=== PATIENT | female | born 1995 | race Caucasian/White ===

== ENCOUNTER 2017-03-23 22:03 | Emergency (ER) | payer OTHER ==
[~2017-03-23] VITALS: Ht 160 cm; Wt 106.6 kg
[~2017-03-23 22:03] MED LIST: ANAPROX DS550 MG PO; CARAFATE1 GM PO; CITALOPRAM HBR20 MG PO; CLONIDINE PO; COLACE100 MG PO; CRUTCH1 EACH; CYCLOBENZAPRINE10 MG PO; ETHOSUXIMIDE250 MG PO; HYDROXYZINE PAM50 MG PO; IBUPROFEN800 MG PO; KEFLEX500 MG PO; KEPPRA500 MG PO; LAMICTAL25 MG PO; LAMOTRIGINE100 MG PO; LUTERA1 EACH PO; MAALOX525 MG/15 PO; MELATONIN3 MG PO; NAPROXEN375 MG PO; NAPROXEN500 MG PO; NORCO 5-325 TA1 EACH PO; PERCOCET 7.5-31 EACH PO; PRILOSEC20 MG PO; TRAMADOL HCL50 MG PO; TRAZODONE HCL50 MG PO; ULTRAM50 MG PO; VITAMIN D250000 UNIT PO; VITAMIN D5000 UNIT PO; ZARONTIN250 MG PO; ZOFRAN ODT4 MG SL
[2017-03-23] MEDS ORDERED: PREVIFEM1 EACH PO (22:20)
== END 2017-03-24 00:08 | disposition home or self-care (01) ==
LOC: ED 22:03
DX: N92.0 Excessive and frequent menstruation with regular cycle (principal); F41.9 Anxiety disorder, unspecified; F32.9 Major depressive disorder, single episode, unspecified; Z90.49 Acquired absence of other specified parts of digestive tract; Z88.5 Allergy status to narcotic agent; Z88.8 Allergy status to other drugs, medicaments and biological substances; Z79.899 Other long term (current) drug therapy
CPT/HCPCS: 84703; 85025; 99283

== ENCOUNTER 2017-05-03 17:18 | Emergency (ER) | payer OTHER ==
[~2017-05-03] VITALS: Ht 160 cm; Wt 106.6 kg
[~2017-05-03 17:18] MED LIST changes: +PREVIFEM1 EACH PO
[2017-05-03] MEDS ORDERED: BACLOFEN10 MG PO (18:24)
[2017-05-03] MEDS ORDERED: KETOROLAC TROME10 MG PO (18:24)
== END 2017-05-03 18:52 | disposition home or self-care (01) ==
LOC: ED 17:18
DX: M99.03 Segmental and somatic dysfunction of lumbar region (principal); M99.05 Segmental and somatic dysfunction of pelvic region; G40.909 Epilepsy, unspecified, not intractable, without status epilepticus; F41.9 Anxiety disorder, unspecified; F32.9 Major depressive disorder, single episode, unspecified; Z90.89 Acquired absence of other organs; Z90.49 Acquired absence of other specified parts of digestive tract; Z88.5 Allergy status to narcotic agent; Z88.8 Allergy status to other drugs, medicaments and biological substances
CPT/HCPCS: 99282

== ENCOUNTER 2017-09-03 15:35 | Emergency (ER) | payer OTHER ==
[~2017-09-03] VITALS: Ht 160 cm; Wt 106.6 kg
[~2017-09-03 15:35] MED LIST changes: +BACLOFEN10 MG PO; +KETOROLAC TROME10 MG PO
[2017-09-03] MEDS ORDERED: BUPROPION HCL100 MG PO (15:56)
[2017-09-03] MEDS ORDERED: BUSPIRONE HCL10 MG PO (15:57)
--- OUTSIDE RECORDS SUMMARY | 2017-09-03 15:59 | XMS | Clinical Summary ---
Demographics + + + | Address | [address] | | | [place] [address] | + + + | Home Phone | | + + + | Preferred Language | Unknown | + + + | Marital Status | Single | + + + | Holiness Affiliation | CAT | + + + | Race | White | + + + | Ethnic Group | Not or | + + + Author + + + | Author | [facility] | + + + | Organization | [facility] | + + + | Address | Unknown | + + + | Phone | Unavailable | + + + Care Team Providers + +------+ + | Care Faucets Assembler Name | Role | Phone | + +------+ + PP | Unavailable | + +------+ + Source Comments [facility] is fully live on both EpicCare Ambulatory and EpicCare InPatient.[facility] Allergies + + + + + + | Active Allergy | Reactions | Severity | Noted | Comments | | | | | Date | | + + + + + + | Acetaminophen-Codein | Rash | | 01/14/20 | Tylenol w codeine | | e | | | 12 | was given at the | | | | | | same time as | | | | | | morphine and pt | | | | | | reacted with an all | | | | | | over body rash. | | | | | | Unclear which agent | | | | | | responsible for | | | | | | rash/allergy. | + + + + + + Current Medications + + +-------+---------+------+------+-------+ | Prescription | Sig. | Disp. | Refills | Star | End | Statu | | | | | | t | Date | s | | | | | | Date | | | + + +-------+---------+------+------+-------+ | Melatonin 1 mg | Take 1 mg by mouth | | | | | Activ | | Oral Tablet | once daily at | | | | | e | | | bedtime. | | | | | | + + +-------+---------+------+------+-------+ | Psyllium Husk | Take 0.52 g by mouth | | | | | Activ | | (METAMUCIL) 0.52 g | as needed. | | | | | e | | Oral Capsule | | | | | | | + + +-------+---------+------+------+-------+ Active Problems + + + | Problem | Noted Date | + + + | Generalized nonconvulsive epilepsy (HCC) | | + + + + + | Overview: <PROVIDER>YEISON HAMILTON | | <MODIFIER>345.00 | | ICD10 | + + Social History + +-------+ +--------+------+ | Tobacco Use | Types | Packs/Day | Years | Date | | | | | Used | | + +-------+ +--------+------+ | Never Assessed | | | | | + +-------+ +--------+------+ + + + | Sex Assigned at | Date Recorded | | | | + + + | Not on file | | + + + Last Filed Vital Signs + + + + | Vital Sign | Reading | Time Taken | + + + + | Blood Pressure | 118/57 | 01/14/2012 10:00 AM PDT | + + + + | Pulse | 66 | 01/14/2012 10:00 AM PDT | + + + + | Temperature | - | - | + + + + | Respiratory Rate | - | - | + + + + | Oxygen Saturation | - | - | + + + + | Inhaled Oxygen | - | - | | Concentration | | | + + + + | Weight | 77.9 kg (171 lb 11.8 | 01/14/2012 10:00 AM PDT | | | oz) | | + + + + | Height | 160.8 cm (5' 3.31") | 01/14/2012 10:00 AM PDT | + + + + | Body Mass Index | 30.13 | 01/14/2012 10:00 AM PDT | + + + + Plan of Treatment + + + + + | Health Maintenance | Due Date | Last Done | Comments | + + + + + | INFLUENZA VACCINE | | | | | (FLU SHOT) | 7 | | | + + + + + Results Not on filefrom Last 3 Months
== END 2017-09-03 17:52 | disposition home or self-care (01) ==
LOC: ED 15:35
DX: R41.3 Other amnesia (principal); F41.9 Anxiety disorder, unspecified; F32.9 Major depressive disorder, single episode, unspecified; Z88.5 Allergy status to narcotic agent; Z88.8 Allergy status to other drugs, medicaments and biological substances
CPT/HCPCS: 70450; 99284

== ENCOUNTER 2019-09-22 12:02 | Day surgery (SDC) | payer OTHER ==
[~2019-09-22] VITALS: Ht 160 cm; Wt 106.6 kg
--- NOTE | ~2019-09-22 | OR ---
[facility] [address], [place] [address] Draft DATE OF OPERATION: 09/22/2019 SURGEON: Silva Amaya MD PREOPERATIVE DIAGNOSES: 1. Persistent nausea and epigastric pain. 2. Negative beta-hCG. 3. History of cholecystectomy. POSTOPERATIVE DIAGNOSIS: Normal esophagus, stomach, and duodenum. PROCEDURE: Esophagogastroduodenoscopy with biopsy. ANESTHESIA: Intravenous sedation with fentanyl 100 mcg and Versed 6 mg. INDICATION: A 24-year-old obese white woman is a patient of Dr. Dong and has had complaints of upper abdominal pain in the epigastric area, worse with stress. She also has associated nausea. She has undergone laparoscopic cholecystectomy in 2012 with improvement of her symptoms back then. She has been treated with PPI medication with essentially no benefit. She does note that stress makes her symptoms quite a bit worse. She is admitted at this time to undergo upper endoscopy to better characterize the problem and assess for peptic disease, infectious disease, and other problems related to her upper abdominal pain symptoms. She understands the risks of bleeding, infection, and perforation. She wished to proceed. FINDINGS: Esophagus, stomach, and duodenum were normal. CLOtest biopsies were negative. DESCRIPTION OF PROCEDURE: The patient was brought to the endoscopy suite and given topical Hurricaine spray hypopharyngeal anesthesia and placed in lateral decubitus position. She was given intravenous sedation to the point of slurred speech and nystagmus with full cardiopulmonary monitoring. A bite block was placed. An Olympus video upper endoscope was passed in the hypopharynx. The vocal cords and surrounding soft tissue were normal. Scope was easily passed in the esophagus throughout its length, it was normal. Scope was passed in the stomach, which was insufflated with air. There was a fair amount of PATIENT NAME: LEO DEAL OPERATIVE REPORT DATE OF : [birth year] REPORT #: [id number] PHYSICIAN: SILVA AMAYA MD PCP: THEODORA DONG MD REPORT IS CONFIDENTIAL AND NOT TO BE RELEASED WITHOUT AUTHORIZATION [facility] [address], [place] [address] Draft bilious fluid in the stomach. Once suctioned free, the rugal folds appeared normal as did antral motility. Pylorus was normal. Scope was passed through into the duodenum. The bulbar and second and third portions appeared normal. Biopsies were taken of both areas. The scope was withdrawn and biopsies then taken of the antrum, which appeared normal. Retroflexed view showed a good flap valve. No sign of hiatal hernia. Scope was withdrawn to the distal esophagus, which was completely normal. Biopsies were taken nevertheless. Scope was withdrawn to the mid esophagus. Biopsies taken as well. Scope was removed and the patient was taken to recovery room in good condition. CONCLUDING DIAGNOSIS: Entirely normal upper endoscopy. ASSESSMENT: Appears to have nonulcer dyspepsia. She has been unresponsive to PPI medication. It is unlikely that biopsies will find any pathologic finding not seen endoscopically; however, we will wait for those results. In the meantime, we will treat with Carafate 1 g p.o. q.i.d. on empty stomach. See her back in 4 to 6 weeks and review of her symptoms. Silva Amaya MD JM/MODL /[id number] cc: Theodora Dong MD Copies: THEODORA DONG MD ~ PATIENT NAME: LEO DEAL OPERATIVE REPORT DATE OF : [birth year] REPORT #: [id number] PHYSICIAN: SILVA AMAYA MD PCP: THEODORA DONG MD REPORT IS CONFIDENTIAL AND NOT TO BE RELEASED WITHOUT AUTHORIZATION
[~2019-09-22 12:02] MED LIST changes: +BUPROPION HCL100 MG PO; +BUSPIRONE HCL10 MG PO; +DOXYCYCLINE HY100 MG PO; +FLAGYL500 MG PO; +MIRENA1 EACH; +OMEPRAZOLE20 MG PO; +VITAMIN D21250 MCG PO; +ZOLPIDEM TARTRAT5 MG PO
--- NOTE | 2019-09-22 13:24 | NUR ---
09/22/19 1324 Dixie Rodriguez 1316-PATIENT ARRIVED TO PACU ON 2L NC AWAKE DENIES PAIN OR NAUSEA. RR EVEN. ABDOMEN SOFT. LAYING LEFT LATERAL. IVF INFUSING.
--- NOTE | 2019-09-25 10:52 | PATH ---
[facility] [address] [place], [place] [address] Signed SPECIMEN(S): A DUODENUM SPECIMEN(S): B ANTRUM/PYLORUS SPECIMEN(S): C LOWER ESOPHAGUS SPECIMEN(S): D MIDDLE ESOPHAGUS SPECIMEN SOURCE: A. DUODENUM B. ANTRUM/PYLORUS C. LOWER ESOPHAGUS D. MIDDLE ESOPHAGUS CLINICAL HISTORY: Pre Op: Upper abdominal pain. Hx of cholecystectomy. Post Op: Normal. MICROSCOPIC DESCRIPTION: Histologic sections of all submitted blocks are examined by light microscopy. These findings, together with the gross examination, support the pathologic diagnosis. FINAL PATHOLOGIC DIAGNOSIS: A. Duodenum, biopsy: - Duodenal mucosa with no histopathologic abnormality. - Negative for dysplasia or malignancy. B. Stomach, antrum/pylorus, biopsy: - Antral mucosa with mild chronic, inactive gastritis. - Negative for Helicobacter organisms, see Comment. - Negative for dysplasia or malignancy. C. Esophagus, lower, biopsy: - Squamous mucosa with changes suggestive of mild reflux esophagitis. - Negative for intestinal metaplasia, dysplasia, or malignancy. D. Esophagus, middle, biopsy: - Squamous mucosa with minimal chronic inflammation and focal mucosal capillary dilation. - Negative for intestinal metaplasia, dysplasia, or malignancy. COMMENT: An immunohistochemical stain (with appropriately staining controls) for H. pylori performed on the stomach antral biopsy (B) is negative for Helicobacter organisms. NAL:cml:C2NR GROSS DESCRIPTION: PATIENT NAME: LEO DEAL PATHOLOGY DATE OF : [birth year] REPORT #: [id number] PHYSICIAN: KATHRIN PATHOLOGY PCP: THEODORA DONG MD REPORT IS CONFIDENTIAL AND NOT TO BE RELEASED WITHOUT AUTHORIZATION [facility] [address] [place], [place] [address] Signed Four specimens are received in four containers, labeled "WL." A. The specimen, labeled "WL, duodenum," per requisition, is received in formalin and consists of three goins soft tissue fragment(s) that measure 0.3 cm in greatest dimension. The specimen is entirely submitted in cassette (A1). B. The specimen, labeled "WL, antrum/pylorus," per requisition, is received in formalin and consists of two goins soft tissue fragment(s) that measure 0.4 cm in greatest dimension. The specimen is entirely submitted in cassette (B1). C. The specimen, labeled "WL, lower esophagus," per requisition, is received in formalin and consists of three single goins soft tissue fragment(s) that measure 0.4 cm in greatest dimension. The specimen is entirely submitted in cassette (C1). D. The specimen, labeled "WL, middle esophagus," per requisition, is received in formalin and consists of a single goins soft tissue fragment(s) that measures 0.4 cm in greatest dimension. The specimen is entirely submitted in cassette (D1). AT(under the direct supervision of a pathologist) The Gross Description was prepared using a voice recognition system. The report was reviewed for accuracy; however, sound-alike word errors, addition and/or deletions may occur. If there is any question about this report, please contact Client Services. ADDITIONAL NOTES: Immunohistochemical and/or in situ hybridization studies were performed on this case with the appropriate positive controls that react as expected. This test was developed and its performance characteristics determined by [facility]. It has not been cleared or approved by the U.S. Food and Drug Administration. The FDA has determined that such clearance or approval is not necessary. This test is used for clinical purposes. It should not be regarded as investigational or for research. [facility] is certified under the Clinical Laboratory Improvement Amendments of 1988 (CLIA) as qualified to perform high complexity clinical laboratory testing. PERFORMING LABORATORY: The technical component was performed by [facility], [address] [place] [id number] (Cryptographic Clerk: Margarita Coronel MD; CLIA# [id number]). [facility] [address], PATIENT NAME: LEO DEAL PATHOLOGY DATE OF : [birth year] REPORT #: [id number] PHYSICIAN: KATHRIN PATHOLOGY PCP: THEODORA DONG MD REPORT IS CONFIDENTIAL AND NOT TO BE RELEASED WITHOUT AUTHORIZATION [facility] [address] [place] [id number] Signed [place] [id number] (CLIA# [id number]). Diagnostician: Megan Bolton MD Pathologist Electronically Signed 09/24/2019 Copies: ~ PATIENT NAME: LEO DEAL PATHOLOGY DATE OF : [birth year] REPORT #: [id number] PHYSICIAN: KATHRIN PATHOLOGY PCP: THEODORA DONG MD REPORT IS CONFIDENTIAL AND NOT TO BE RELEASED WITHOUT AUTHORIZATION
== END 2019-09-22 13:55 | disposition home or self-care (01) ==
LOC: DS 12:02 → OPS 12:02 → DS 13:00 → OPS 13:00
PROVIDERS: Surgery
PROC: 0DB78ZX Excision of Stomach, Pylorus, Via Natural or Artificial Opening Endoscopic, Diagnostic (ICD-10-PCS; 2019-09-22)
PROC: 0DB38ZX Excision of Lower Esophagus, Via Natural or Artificial Opening Endoscopic, Diagnostic (ICD-10-PCS; 2019-09-22)
PROC: 0DB28ZX Excision of Middle Esophagus, Via Natural or Artificial Opening Endoscopic, Diagnostic (ICD-10-PCS; 2019-09-22)
PROC: 0DB98ZX Excision of Duodenum, Via Natural or Artificial Opening Endoscopic, Diagnostic (ICD-10-PCS; principal; 2019-09-22 13:00)
DX: K29.50 Unspecified chronic gastritis without bleeding (principal); K20.9 Esophagitis, unspecified; F32.9 Major depressive disorder, single episode, unspecified; R19.7 Diarrhea, unspecified; K59.00 Constipation, unspecified; E66.9 Obesity, unspecified; F41.8 Other specified anxiety disorders; Z90.49 Acquired absence of other specified parts of digestive tract; Z88.5 Allergy status to narcotic agent; Z79.899 Other long term (current) drug therapy
CPT/HCPCS: 84703; G0500; J1100; J2250; J3010; J7121

== ENCOUNTER 2019-09-22 21:19 | Emergency (ER) | payer OTHER ==
[~2019-09-22] VITALS: Ht 160 cm; Wt 106.6 kg
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
== END 2019-09-22 23:51 | disposition home or self-care (01) ==
LOC: ED 21:19
DX: R50.82 Postprocedural fever (principal); F32.9 Major depressive disorder, single episode, unspecified; F41.9 Anxiety disorder, unspecified; Z88.5 Allergy status to narcotic agent; Z88.8 Allergy status to other drugs, medicaments and biological substances; Z79.899 Other long term (current) drug therapy
CPT/HCPCS: 36415; 80053; 81001; 85025; 99283

== ENCOUNTER 2020-12-07 01:08 | Emergency (ER) | payer OTHER ==
[~2020-12-07] VITALS: Ht 160 cm; Wt 104.8 kg
[~2020-12-07 01:08] MED LIST changes: +BUPROPION XL150 MG PO; +CLONIDINE HCL0.1 MG PO; +MAALOX ADVANCE1 EACH PO; +SPIRONOLACTONE50 MG PO; +SUCRALFATE1 GM PO
--- OUTSIDE RECORDS SUMMARY | 2020-12-07 04:06 | XMS ---
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 If patient is seen in the ED during business hours. Please contact CHWs at [facility]. Care Recommendation: If this patient has had 5 or more Emergency Department visits in the last 12 months.\T\nbsp; Patient will require education on the scope and purpose of the ED as an acute care provider not a Primary Care Provider and should not be utilized for chronic conditions.\T\nbsp; These are guidelines and the provider should exercise clinical judgment when providing care. E.D. VISIT COUNT (12 MO.) 2 ANTONINO [place] TOTAL 2 NOTE: Visits indicate total known visits. ED/UCC VISIT TRACKING (12 MO.) 12/07/2020 01:09 ANTONINO [place] TYPE: Emergency COMPLAINT: - ABDOMINAL PAIN 10/27/2020 00:49 ANTONINO [place] TYPE: Emergency COMPLAINT: - ABDOMINAL SWELLING DIAGNOSES: - Allergy status to narcotic agent - Allergy status to other drugs, medicaments and biological substances - Other fdc (current) drug therapy - Left upper quadrant pain INPATIENT VISIT TRACKING (12 MO.) No inpatient visits to display in this time frame [email or web address]
--- NOTE | 2020-12-07 13:17 | EKG ---
[facility] [address] [place], [place] [address] Signed Sinus tachycardia Otherwise normal ECG When compared with ECG of 27-OCT-2020 01:44, No significant change was found Confirmed by RICHA PERSAUD MD ([id number]) on 12/07/2020 1:16:51 PM Electronically Signed By: RICHA PERSAUD MD 12/07/20 1317 PATIENT NAME: LEO DEAL RAHUL Electrocardiogram DATE OF : [birth year] PHYSICIAN: RICHA PERSAUD MD REPORT #: [id number] REPORT IS CONFIDENTIAL AND NOT TO BE RELEASED WITHOUT AUTHORIZATION
[2021-01-30] MEDS ORDERED: BUSPIRONE HCL30 MG PO (15:11)
[2021-01-30] MEDS ORDERED: VITAMIN D21250 MCG PO (15:12)
== END 2020-12-07 04:02 | disposition home or self-care (01) ==
LOC: ED 01:08
DX: R10.13 Epigastric pain (principal); R00.0 Tachycardia, unspecified; E87.6 Hypokalemia; R11.0 Nausea; Z88.5 Allergy status to narcotic agent; Z88.8 Allergy status to other drugs, medicaments and biological substances; Z79.899 Other long term (current) drug therapy
CPT/HCPCS: 80053; 81001; 83690; 83735; 84443; 84484; 84703; 85025; 85379; 93005; 93010; 96374; 96375; 99284-25; J2060; J2550; J7121

== ENCOUNTER 2020-12-07 12:21 | Observation (INO) | payer OTHER ==
[~2020-12-07] VITALS: Ht 160 cm; Wt 104.5 kg
--- OUTSIDE RECORDS SUMMARY | 2020-12-07 12:26 | XMS ---
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 [place] TOTAL 3 NOTE: Visits indicate total known visits. ED/UCC VISIT TRACKING (12 MO.) 12/07/2020 12:22 ANTONINO [place] TYPE: Emergency COMPLAINT: - N/V 12/07/2020 01:09 ANTONINO [place] TYPE: Emergency COMPLAINT: - ABDOMINAL PAIN 10/27/2020 00:49 ANTONINO [place] TYPE: Emergency COMPLAINT: - ABDOMINAL SWELLING DIAGNOSES: - Allergy status to narcotic agent - Allergy status to other drugs, medicaments and biological substances - Other half-way (current) drug therapy - Left upper quadrant pain INPATIENT VISIT TRACKING (12 MO.) No inpatient visits to display in this time frame [email or web address]
--- NOTE | 2020-12-07 21:13 | NUR ---
PT ASSESSMENT, VS AND I&O COMPLETED. GCS 15, A&O X4. LUNGS CLEAR, HEART TONES REGULAR. ABD SOFT, NONTENDER, PT STATES NORMAL, BOWEL TONES ACTIVE. PT DENIES PAIN AT THIS TIME. CMS INTACT. IV WNL, CDI, FLUSHED WELL. PT AMBULATING WELL ON HER OWN. EDUCATION PROVIDED CONCERNING SAFETY, IV AND AMBULATION, CALL LIGHT AND PAIN MANAGEMENT. IV FLUIDS INFUSING PER ORDER. NO OTHER NEEDS AT THIS TIME. CALL LIGHT IN REACH.
--- NOTE | 2020-12-07 22:00 | NUR ---
PT CALLS TO USE BR, PROVIDED. NO OTHER NEEDS. CALL LIGHT IN REACH.
--- NOTE | 2020-12-07 23:37 | NUR ---
PT RESTING IN BED, EYES CLOSED. RR EVEN, UNLABORED. MOTHER IN ROOM. CALL LIGHT IN REACH.
--- NOTE | 2020-12-08 01:00 | NUR ---
PT RESTING IN BED, EYES CLOSED. RR EVEN, UNLABORED. CALL LIGHT IN REACH.
--- NOTE | 2020-12-08 02:00 | NUR ---
in to get two am vitals, pt resting, denies any further needs at this time
--- NOTE | 2020-12-08 03:00 | NUR ---
PT RESTING IN BED, EYES CLOSED. RR EVEN, UNLABORED. CALL LIGHT IN REACH.
--- NOTE | 2020-12-08 04:40 | NUR ---
ASSESSMENT, VS AND I&O COMPLTED. PT DENEIS PAIN. LUNGS CLEAR, HEART TONES REGULAR. ABD SOFT, NONTENDER, MILDLY DISTENDED, BOWEL TONES ACTIVE. CMS INTACT. IV WNL, CDI, IV FLUIDS INFUSING PER ORDER. MOM IN ROOM. NO OTHER NEEDS AT THIS TIME. CALL LIGHT IN REACH.
--- NOTE | 2020-12-08 06:02 | CONS ---
[facility] [address] [place], [place] [address] Signed DATE OF CONSULTATION: 12/07/2020 CHIEF COMPLAINT: Epigastric abdominal pain. HISTORY OF PRESENT ILLNESS: Leo is a 25-year-old female who has now finished her two-year associate degree. 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 For some reason that has caused her a lot of stress and anxiety. They were headed down next week with the whole family to visit the campus and so forth. Apparently the whole family is going to move down to [place] with her to help her get through her last couple years of undergrad. She has been to see Dr. Chavez in the past for nonulcer dyspepsia and even had her gallbladder removed. At one point, Dr. Chavez actually took her tonsils out. She has had upper endoscopy in the past and apparently that was okay. However, she is having epigastric abdominal pain now with nausea and dry heaves. She came to emergency room last night around midnight, came back again today. Mom really did not want her to be discharged to home. Consequently, I have been asked to see her as a general surgeon on-call. Her white count is normal. Electrolytes are fine. Her AST and ALT are chronically elevated and apparently Dr. Chavez told to her that her gallbladder bile ducts were quite small. Her beta-hCG is negative. COVID is negative. CT scan was done and everything is fine. There was a little calcification in the proximal appendix and maybe some fluid in the appendix, so there is always a question of whether or not she could have early appendicitis. However, her clinical symptoms do not match. All her symptoms are epigastric and left upper quadrant. She has received some IV fluids and overall is quite anxious. Her mom is with her today. PAST MEDICAL HISTORY: 1. Epilepsy back in 1998, but none recently. 2. Anxiety and depression. 3. Polycystic ovarian syndrome. 4. Nonulcer dyspepsia. 5. Chronic abdominal pain. 6. Insomnia. 7. Gastroesophageal reflux disease. PAST SURGICAL HISTORY: Includes a tonsillectomy and cholecystectomy with Dr. Chavez, IUD placement, and upper endoscopy with Dr. Chavez. SOCIAL HISTORY: She does not smoke. She has a drink once in a while. Her mother and stepfather actually live with her in her house. She has just finished her associate degree in Livestock Production and Management and is headed for [place] for her bachelor's degree. The whole Electronically Signed By: TAYLOR BLAKE MD 12/08/20 0602 PATIENT NAME: LEO GOLDEN CONSULTATION DATE OF : [birth year] REPORT #: [id number] PHYSICIAN: TAYLOR BLAKE MD PCP: SANTIAGO MITCHELL DO REPORT IS CONFIDENTIAL AND NOT TO BE RELEASED WITHOUT AUTHORIZATION [place] [phone] Signed family is going to move with her. She is single and has no children. Reagan Golden is her mother at [phone]. Dr. Santiago Mitchell is her primary care provider in [place], [place]. She prefers [facility]. FAMILY HISTORY: Mom had diabetes. Maternal uncle had diabetes and another uncle apparently had colon cancer. REVIEW OF SYSTEMS: She has projectile vomiting after anesthesia. ALLERGIES: Sympathomimetic agents, morphine, codeine, oxycodone, phenylpropanolamine. MEDICATIONS: 1. Maalox. 2. Mirena. 3. Prilosec. 4. Zolpidem.\E\. 5. Bupropion. 6. Clonidine. 7. Sucralfate. 8. Spironolactone. PHYSICAL EXAMINATION: VITAL SIGNS: Blood pressure 128/86, her heart rate 120, respiratory rate 18, temperature is 98.6, she is 100% on room air. She is 5 feet 3 inches and 107 kg. GENERAL: Leo is a 25-year-old female lying supine in her ER bed. Her mother is at the bedside. She does not appear systemically ill or toxic. However, she is quite anxious and she is tachycardic. LUNGS: Clear to auscultation bilaterally. HEART : Tachycardic without murmur. ABDOMEN: Obese, but soft and nontender. She points to the epigastric left upper quadrant as the area of her pain. LABORATORY DATA: Her white blood count is 7.4, hemoglobin 13 neutrophils 74. Electrolytes unremarkable. Total bilirubin 0.7, AST up a little at 84, ALT up a little at 84, alkaline phosphatase 85, albumin is 4.3. Beta-hCG negative. COVID is negative. RADIOGRAPHIC STUDIES: A CT scan of the abdomen and pelvis is generally negative except for some calcification in the proximal appendix, possibly early appendicitis due to some fluid in the appendix, maybe a little enhancement of the appendiceal wall. Electronically Signed By: TAYLOR BLAKE MD 12/08/20 0602 PATIENT NAME: LEO GOLDEN CONSULTATION DATE OF : [birth year] REPORT #: [id number] PHYSICIAN: TAYLOR BLAKE MD PCP: SANTIAGO MITCHELL DO REPORT IS CONFIDENTIAL AND NOT TO BE RELEASED WITHOUT AUTHORIZATION [facility] [address] [place], [place] [address] Signed ASSESSMENT AND PLAN: Leo is a 25-year-old female who is very stressed with her upcoming move to [place] despite the fact that her family is going to move with her. She is having epigastric pain and dry heaves. We are going to admit her tonight, give her some IV fluids, clear liquids, and we will consider an upper endoscopy tomorrow. I doubt removing her appendix would make much difference given her clinical presentation. It is always a possibility. We did notice trocar site incisional hernia at the umbilicus on exam as well. However, I do not believe that is contributing to her pain whatsoever. I reviewed all this with Leo and her mother. They have expressed understanding and agreed with the above plan. Taylor Blake MD [facility]/OPALL /[id number] cc: Dr. Santiago Blake MD Copies: TAYLOR BLAKE MD ~ Electronically Signed By: TAYLOR BLAKE MD 12/08/20 0602 PATIENT NAME: LEO GOLDEN CONSULTATION DATE OF : [birth year] REPORT #: [id number] PHYSICIAN: TAYLOR BLAKE MD PCP: SANTIAGO MITCHELL DO REPORT IS CONFIDENTIAL AND NOT TO BE RELEASED WITHOUT AUTHORIZATION
--- NOTE | 2020-12-08 08:00 | NUR ---
RECEIVED REPORT AT 0700, PT WAS AWAKE IN BED. PT DENIED PAIN AND N/V. ABD SOUNDS PRESENT, ABD SOFT BUT TENDER TO TOUCH. LOBES ARE CLEAR, NO OTHER ISSUES NOTED WITH THIS ASSESSMENT.
--- NOTE | 2020-12-08 08:49 | NUR ---
PT NOW LEAVING FLOOR FOR EGD PROCEDURE.
--- NOTE | 2020-12-08 09:43 | NUR ---
12/08/20 0943 Eli Elias 0940-PT TO PACU IN SF POSITION. EYES CLOSED. RESPONDS TO TACTILE AND VERBAL STIMULI. BREATHING EASY AND UNLABORED. SO2 >95% ON 6 L O2 VIA NC. O2 TITRATED DOWN TO 4 L O2 VIA NC. PT FALLS QUICKLY BACK TO SLEEP.
--- NOTE | 2020-12-08 10:10 | NUR ---
PT JUST ARRIVED FROM PACU. PT IS AAOX4, V/S WDL, PT DENIES PAIN. WILL TRY TO MEET ALL D/C GOALS IN THE NEXT 4HRS AND THEN D/C.
--- NOTE | 2020-12-08 11:04 | NUR ---
PT IS DOING WELL. PT WALKED HALLWAY INDEPENDANT AND VOIDED 900MLS. PT WILL EAT SOME LUNCH.
--- NOTE | 2020-12-08 13:47 | NUR ---
PT MEET ALL D/C GOALS. 0/10 PAIN, PT AMBULATED, PT VOIDED, PT ATE, PT TOLERATED PO INTAKE WELL.
--- NOTE | 2020-12-09 06:33 | OR ---
[facility] [address] [place], [place] [address] Signed DATE OF OPERATION: 12/08/2020 SURGEON: Taylor Blake MD PREOPERATIVE DIAGNOSES: 1. Epigastric abdominal pain. 2. Nausea. 3. Dry heaves. POSTOPERATIVE DIAGNOSES: 1. Small hiatal hernia. 2. Mild diffuse gastritis. PROCEDURES: EGD with CLOtest and biopsies of the antrum. ESTIMATED BLOOD LOSS: None. INDICATIONS: Leo is a 25-year-old female who at her baseline has anxiety and depression and non-ulcer dyspepsia. She has chronic abdominal pain and insomnia. She also suffers with acid reflux. She had been working with Dr. Chavez a few years ago and had upper endoscopy performed and also had her cholecystectomy. She has been maintained on Prilosec and sucralfate along with Maalox. Overall, she is doing well. She just finished up her associates degree. She has headed down to [place] to complete her bachelor's degree. She apparently owns her own house and her mom and stepdad live with her. They are all going to move down the [place] together while she finished her college. She has been under a tremendous amount of stress with the change. She came in the emergency room around midnight, seemed to be fine, was discharged to home. She came back the next morning with ongoing epigastric and left upper quadrant abdominal pain with nausea and dry heaves. White count and laboratory work were not particularly concerning. CT scan showed some fluid in her appendix, so I had been asked to see her as a general surgeon on-call. She has no pain or symptoms whatsoever related to the appendix. We admit her last night with IV fluids and antiemetics and she seems to have done very well overnight. She slept and looks much better this morning. She was so anxious yesterday she was tachycardic to 140s. Today, she is down to 90 beats per minute. EKG did show the sinus tachycardia. I had met with Leo and her mother and we had a long discussion regarding her findings. We decided we would repeat the upper endoscopy this morning and see if she did not have gastritis or an ulcer. She Electronically Signed By: TAYLOR BLAKE MD 12/09/20 0633 PATIENT NAME: LEO DEAL OPERATIVE REPORT DATE OF : [birth year] REPORT #: [id number] PHYSICIAN: TAYLOR BLAKE MD PCP: SANTIAGO MURPHY DO REPORT IS CONFIDENTIAL AND NOT TO BE RELEASED WITHOUT AUTHORIZATION [facility] [address] [place], [place] [address] Signed understands the test quite well. She knows there is risk including, but not limited to gas bloating, crampy abdominal pain, bleeding, perforation requiring surgery, and missed diagnosis. She also understands the need for sedation. Given her polycystic ovarian syndrome, she has a full round face, heavy neck and chest and so forth. Therefore, we asked our anesthesia provider to help us with increased monitoring and sedation with propofol. That proved to be a morel decision as she did take quite a bit of propofol. They had expressed understanding and wished to proceed. PROCEDURE NOTE: Leo was taken into our endoscopy suite and placed in the supine semi-recumbent position. She was given IV sedation with propofol per our nurse finisher fine diamond dies. A bite block was utilized for the case. The adult gastroscope was introduced and advanced under direct visualization of camera. She seems to have a lot of tonsillar tissue above the epiglottis. Otherwise, the epiglottis seemed unremarkable. The scope passed readily through the esophagus and all the way out into the third portion of the duodenum. The duodenum and pyloric channel were unremarkable. She had nice clear bile in the duodenum. The stomach showed mild diffuse erythematous changes with a few shallow areas of irritation. We went ahead and took a biopsy of the antrum for CLOtest as well as pathologic review. No ulcerations. Upon retroflexion of scope, she does have just a small hiatal hernia. The scope was withdrawn up through the area of the GE junction, which was compliant without stricture. No gastric or esophageal varices. Really, no disruption to any significant degree to the Z-line. There was no Barnes's mucosa, no distal esophagitis. The middle and upper esophagus were unremarkable. After this, the gas was suctioned out and the gastroscope removed. Leo tolerated the procedure quite well. RECOMMENDATIONS: Leo will be discharged home today with her family. She will continue her chronic medications. I will have her back in the office in a week or so for followup. She has headed down to [place] in two weeks' time to finish her bachelor's degree. Taylor Blake MD [facility]/OPALL /[id number] Electronically Signed By: TAYLOR BLAKE MD 12/09/20 0633 PATIENT NAME: LEO DEAL OPERATIVE REPORT DATE OF : [birth year] REPORT #: [id number] PHYSICIAN: TAYLOR BLAKE MD PCP: SANTIAGO MURPHY DO REPORT IS CONFIDENTIAL AND NOT TO BE RELEASED WITHOUT AUTHORIZATION [facility] [address] [address] Signed cc: DO Taylor Castle MD Copies: TAYLOR BLAKE MD ~ Electronically Signed By: TAYLOR BLAKE MD 12/09/20 0633 PATIENT NAME: LEO DEAL OPERATIVE REPORT DATE OF : [birth year] REPORT #: [id number] PHYSICIAN: TAYLOR BLAKE MD PCP: SANTIAGO MURPHY DO REPORT IS CONFIDENTIAL AND NOT TO BE RELEASED WITHOUT AUTHORIZATION
--- NOTE | 2020-12-12 20:20 | PATH ---
[facility] [address] [place], [place] [address] Signed SPECIMEN(S): A ANTRUM/PYLORUS SPECIMEN SOURCE: A. ANTRUM/PYLORUS CLINICAL HISTORY: Epigastric pain MICROSCOPIC DESCRIPTION: Histologic sections of all submitted blocks are examined by light microscopy. These findings, together with the gross examination, support the pathologic diagnosis. FINAL PATHOLOGIC DIAGNOSIS: Stomach, antrum/pylorus, biopsy: - Antral mucosa with mild chronic, inactive gastritis. - Negative for Helicobacter organisms on HE stain. - Negative for dysplasia or malignancy. NAL:cml:C2NR GROSS DESCRIPTION: The specimen, labeled "Leo Golden, #1," and designated on the requisition "antrum/pylorus biopsy," is received in formalin and consists of one goins soft tissue fragment that measures 0.7 cm in greatest dimension. The specimen is entirely submitted in cassette (A1). FB (under the direct supervision of a pathologist) The Gross Description was prepared using a voice recognition system. The report was reviewed for accuracy; however, sound-alike word errors, addition and/or deletions may occur. If there is any question about this report, please contact Client Services. PERFORMING LABORATORY: The technical component was performed by [facility], [address] [place] [id number] (Pre Sales Systems Engineer: Margarita Coronel MD; CLIA# [id number]). [facility], [address] [address] (CLIA# [id number]). Diagnostician: Megan Bolton MD Pathologist Electronically Signed 12/12/2020 PATIENT NAME: LEO GOLDEN PATHOLOGY DATE OF : [birth year] REPORT #: [id number] PHYSICIAN: KATHRIN PATHOLOGY PCP: SANTIAGO MURPHY DO REPORT IS CONFIDENTIAL AND NOT TO BE RELEASED WITHOUT AUTHORIZATION [address] [address] Signed Copies: ~ PATIENT NAME: LEO GOLDEN PATHOLOGY DATE OF : [birth year] REPORT #: [id number] PHYSICIAN: KATHRIN PATHOLOGY PCP: SANTIAGO MURPHY DO REPORT IS CONFIDENTIAL AND NOT TO BE RELEASED WITHOUT AUTHORIZATION
[2021-01-30] MEDS ORDERED: BUSPIRONE HCL30 MG PO (15:11)
[2021-01-30] MEDS ORDERED: VITAMIN D21250 MCG PO (15:12)
== END 2020-12-08 14:08 | disposition home or self-care (01) ==
LOC: ED 12:21 → MS 12:23 → ED 20:07 → MS 20:07
PROVIDERS: ADMIT Colon & Rectal Surgery; ATTEND Colon & Rectal Surgery
PROC: 0DB78ZX Excision of Stomach, Pylorus, Via Natural or Artificial Opening Endoscopic, Diagnostic (ICD-10-PCS; principal; 2020-12-08 09:45)
DX: K29.51 Unspecified chronic gastritis with bleeding (principal); K44.9 Diaphragmatic hernia without obstruction or gangrene; K21.9 Gastro-esophageal reflux disease without esophagitis; E66.9 Obesity, unspecified; G43.909 Migraine, unspecified, not intractable, without status migrainosus; G47.00 Insomnia, unspecified; F51.9 Sleep disorder not due to a substance or known physiological condition, unspecified; Z20.822 Contact with and (suspected) exposure to COVID-19; Z88.5 Allergy status to narcotic agent; Z88.8 Allergy status to other drugs, medicaments and biological substances; Z68.41 Body mass index [BMI] 40.0-44.9, adult
CPT/HCPCS: 36415; 74177; 80053; 83690; 83735; 84100; 84703; 85025; 86677; 88305; 96375; 96376; 99285-25; C9113; C9803; G0378; J1200; J1790; J2060; J2405; J7030; J7121; Q9967; U0003

== ENCOUNTER 2021-01-31 10:57 | Day surgery (SDC) | payer OTHER ==
[~2021-01-31] VITALS: Ht 160 cm; Wt 104.0 kg
[~2021-01-31 10:57] MED LIST changes: +BUSPIRONE HCL30 MG PO
--- NOTE | 2021-01-31 12:45 | NUR ---
01/31/21 1245 Sheets,Soraya 1239 PT ARRIVED TO PACU AND WAKES EASILY, PT REROIENTED TO PACU AND ENCOURAGED TO PASS CHIOMA/AIR.
--- NOTE | 2021-02-01 11:01 | OR ---
[facility] [address] [place], [place] [address] Signed DATE OF OPERATION: 01/31/2021 SURGEON: Silva Amaya MD PREOPERATIVE DIAGNOSES: 1. Diffuse episodic abdominal pain. 2. History of cholecystectomy (2012). 3. Normal upper endoscopy in 2020. POSTOPERATIVE DIAGNOSIS: Polyp at hepatic flexure, otherwise normal. PROCEDURES: 1. Total colonoscopy to cecum with cold morcellation polypectomy x1. 2. Biopsy of rectum. ANESTHESIA: Intravenous sedation; fentanyl 150 mcg and Versed 10 mg. INDICATION: This 26-year-old white woman is a patient of Dr. Murphy in [place], [place]. She is known to me from the past having undergone cholecystectomy in 2012. She has had complaints of abdominal pain diffusely noted. Evaluation in the emergency room including a CT scan showed what was thought to be mildly inflamed appendix. Evaluation by Dr. Rishi Murphy found her to have no clinical signs or symptoms of appendicitis proper. She did undergo upper endoscopy, which was said to be normal. She has vague abdominal pain and symptoms suggestive to me of probable irritable bowel syndrome. Admittedly, she does not have profound diarrhea or constipation necessarily currently, but had significant constipation problems in her childhood. She is planning to move to [place] to attend school and is at this time to undergo colonoscopy to better characterize the problem and in particular to assess for inflammatory bowel disease or other problem of a similar type that may account for her symptoms. The risks of bleeding, infection, perforation, and so forth were reviewed with her. She understands and wished to proceed. FINDINGS: The prep was good. Complete colonoscopy was undertaken of the cecum without question. She had a linear-appearing adenomatous polyp at the hepatic flexure, which was excised Electronically Signed By: SILVA AMAYA MD 02/01/21 1101 PATIENT NAME: LEO DEAL OPERATIVE REPORT DATE OF : [birth year] REPORT #: [id number] PHYSICIAN: SILVA AMAYA MD PCP: SANTIAGO MURPHY DO REPORT IS CONFIDENTIAL AND NOT TO BE RELEASED WITHOUT AUTHORIZATION [facility] [address] [place], [place] [address] Signed with cold morcellation technique. The remaining colon was normal. Biopsies were obtained of the rectum to assess for occult colitis. DESCRIPTION OF PROCEDURE: The patient was brought to the endoscopy suite and placed in lateral decubitus position, given intravenous sedation to the point of slurred speech and nystagmus. Full cardiopulmonary monitoring was maintained. Digital rectal examination was normal. An Olympus video colonoscope was passed in the rectum and manipulated throughout the colon. At the hepatic flexure, a linear-appearing polyp was noted. This was excised with multiple bites using a cold morcellation technique. The scope was then advanced to the cecum completely. The ileocecal valve and appendiceal orifice were normal. Irrigation was undertaken and withdrawal of the scope showed no sign of abnormality in the remaining colon. This included no evidence of diverticular disease. The rectum was biopsied to assess for occult colitis. The scope was removed after retroflexed view showed no other findings. The patient was taken to the recovery room in good condition. CONCLUDING DIAGNOSIS: Normal-appearing colon, except for single polyp. Uncertain etiology of any abdominal pain, but unlikely related to a colonic source at this time. May have irritable bowel syndrome nevertheless. I would recommend repeat colonoscopy in 5 years based on the polyp that was found. We will review her pathology report for both rectal biopsy and polyp excision. Silva Amaya MD [facility]/MODL /[id number] cc: DO [place] Copies: Electronically Signed By: SILVA AMAYA MD 02/01/211100 PATIENT NAME: LEO DEAL RAHUL OPERATIVE REPORT DATE OF : [birth year] REPORT #: [id number] PHYSICIAN: SILVA AMAYA MD PCP: SANTIAGO MURPHY DO REPORT IS CONFIDENTIAL AND NOT TO BE RELEASED WITHOUT AUTHORIZATION [address] [place] [address] Signed ~ Electronically Signed By: SILVA AMAYA MD 02/01/21 110 PATIENT NAME: LEO DEAL OPERATIVE REPORT DATE OF : [birth year] REPORT #: [id number] PHYSICIAN: SILVA AMAYA MD PCP: SANTIAGO MURPHY DO REPORT IS CONFIDENTIAL AND NOT TO BE RELEASED WITHOUT AUTHORIZATION
--- NOTE | 2021-02-01 16:27 | PATH ---
[facility] [address] [place], [place] [address] Signed SPECIMEN(S): A HEPATIC FLEXURE POLYP SPECIMEN(S): B RECTUM SPECIMEN SOURCE: A. HEPATIC FLEXURE POLYP B. RECTUM CLINICAL HISTORY: Colonoscopy. C/o abdominal pain, constipation and diarrhea s/p colon polyp x 1. MICROSCOPIC DESCRIPTION: Histologic sections of all submitted blocks are examined by light microscopy. These findings, together with the gross examination, support the pathologic diagnosis. FINAL PATHOLOGIC DIAGNOSIS: A. Colon, hepatic flexure, polyp, polypectomy: - Tubular adenoma. - Negative for high-grade dysplasia or malignancy. B. Rectum, biopsy: - Rectal mucosa with no histopathologic abnormality. - Negative for active or chronic proctitis. - Negative for dysplasia or malignancy. NAL:cml:C2NR GROSS DESCRIPTION: Two specimens are received in two containers, labeled "WL." A. The specimen, labeled "WL, hepatic flexure polyp," is received in formalin and consists of three goins soft tissue fragments that measure 0.1-0.3 cm in greatest dimension. The specimen is entirely submitted in cassette (A1). B. The specimen, labeled "WL, rectum biopsy," is received in formalin and consists of one goins soft tissue fragment that measures 0.3 cm in greatest dimension. The specimen is entirely submitted in cassette (B1). JS (under the direct supervision of a pathologist) The Gross Description was prepared using a voice recognition system. The report was reviewed for accuracy; however, sound-alike word errors, addition and/or deletions may occur. If there is any question about this report, please contact Client Services. PATIENT NAME: LEO DEAL PATHOLOGY DATE OF : [birth year] REPORT #: [id number] PHYSICIAN: KATHRIN HERNÁNDEZ PCP: SANTIAGO MURPHY DO REPORT IS CONFIDENTIAL AND NOT TO BE RELEASED WITHOUT AUTHORIZATION [facility] [address] [place] [address] Signed PERFORMING LABORATORY: The technical component was performed [place] [address] (Wireline Supervisor: Margarita Coronel MD; CLIA# [id number]). Professional interpretation was performed by [facility], [address] [place] [address] (CLIA# [id number]). Diagnostician: Megan Bolton MD Pathologist Electronically Signed 02/01/2021 Copies: ~ PATIENT NAME: LEO DEAL PATHOLOGY DATE OF : [birth year] REPORT #: [id number] PHYSICIAN: KATHRIN HERNÁNDEZ PCP: SANTIAGO MURPHY DO REPORT IS CONFIDENTIAL AND NOT TO BE RELEASED WITHOUT AUTHORIZATION
== END 2021-01-31 13:20 | disposition home or self-care (01) ==
LOC: DS 10:57 → OPS 10:57 → DS 13:00 → OPS 13:20
PROVIDERS: ATTEND Surgery
PROC: 0DBL8ZZ Excision of Transverse Colon, Via Natural or Artificial Opening Endoscopic (ICD-10-PCS; principal; 2021-01-31 12:00)
DX: R10.9 Unspecified abdominal pain (principal); D12.3 Benign neoplasm of transverse colon; G40.909 Epilepsy, unspecified, not intractable, without status epilepticus; Z80.0 Family history of malignant neoplasm of digestive organs
CPT/HCPCS: 84703; 99153; G0500; J2250; J7121

== ENCOUNTER 2021-03-20 17:53 | Emergency (ER) | payer OTHER ==
[~2021-03-20] VITALS: Ht 160 cm; Wt 103.9 kg
--- OUTSIDE RECORDS SUMMARY | 2021-03-20 17:56 | XMS ---
PreManage Notification: LEO DEAL Security Gi Tech Events No recent Security Events currently on file CRITERIA MET - [facility] CARE PROVIDERS [facility] Current PHONE: [phone] THEODORA DONG Internal Medicine 09/23/2019-Current PHONE: [phone] Care Guidelines exist for the following facilities: Regan Padron ( 04/18/2020 ) [facility] VISIT COUNT (12 MO.) [address] [facility] TOTAL 4 NOTE: Visits indicate total known visits. ED/UCC VISIT TRACKING (12 MO.) 03/20/2021 17:54 [facility] [place] TYPE: Emergency COMPLAINT: - SORE THROAT 12/07/2020 12:22 [facility] TYPE: Emergency COMPLAINT: - APPENDICITIS 12/07/2020 01:09 [facility] TYPE: Emergency COMPLAINT: - ABDOMINAL PAIN DIAGNOSES: - Upper abdominal pain, unspecified - Allergy status to narcotic agent - Allergy status to other drugs, medicaments and biological substances - Other halfway (current) drug therapy - Tachycardia, unspecified - Hypokalemia - Epigastric pain - Nausea 10/27/2020 00:49 [facility] TYPE: Emergency COMPLAINT: - ABDOMINAL SWELLING DIAGNOSES: - Allergy status to narcotic agent - Allergy status to other drugs, medicaments and biological substances - Other tank terminal gauger (current) drug therapy - Left upper quadrant pain INPATIENT VISIT TRACKING (12 MO.) 12/07/2020 12:23 [facility] TYPE: Observation COMPLAINT: - APPENDICITIS DIAGNOSES: - Sleep disorder not due to a substance or known physiological condition, unspecified - Migraine, unspecified, not intractable, without status migrainosus - Body mass index [BMI]40.0-44.9, adult - Insomnia, unspecified - Gastro-esophageal reflux disease without esophagitis - Allergy status to other drugs, medicaments and biological substances - Epigastric pain - Obesity, unspecified - Allergy status to narcotic agent - Gastritis, unspecified, without bleeding - Diaphragmatic hernia without obstruction or gangrene - Unspecified chronic gastritis with bleeding [email or web address]
== END 2021-03-20 19:18 | disposition home or self-care (01) ==
LOC: ED 17:53
DX: U07.1 COVID-19 (principal); Z79.899 Other long term (current) drug therapy; Z88.5 Allergy status to narcotic agent; Z88.8 Allergy status to other drugs, medicaments and biological substances
CPT/HCPCS: 99283; A9270; U0003

== ENCOUNTER 2022-10-07 05:43 | Observation (INO) | payer OTHER ==
[~2022-10-07] VITALS: Ht 160 cm; Wt 102.8 kg
[~2022-10-07 05:43] MED LIST changes: +BACTRIM DS TAB1 EACH PO; +CYMBALTA30 MG PO; +ONDANSETRON ODT8 MG PO; +SUMATRIPTAN SUC50 MG PO
[2022-10-07] MEDS ORDERED: CLONIDINE HCL0.3 MG PO (05:56)
[2022-10-07] MEDS ORDERED: LAMOTRIGINE25 MG PO (06:00)
[2022-10-07] MEDS ORDERED: BENADRYL25 MG PO (08:30)
[2022-10-07] MEDS ORDERED: ZZZQUIL25 MG PO (08:31)
--- NOTE | 2022-10-07 09:13 | NUR ---
PATIENT ADMITTED TO CCU FROM ER AT 0815 FOR POTENTIAL SEROTONIN SYNDROME. PT REPORTS THAT SHE IS STILL FEELING ANXIOUS AND UNABLE TO FALL ASLEEP OR RELAX. PT DOES STATE THAT SHE FEELS BETTER FROM WHEN SHE FIRST CAME INTO THE ER. PT REPORTS THAT SHE TOOK HER NORMAL DOSE OF CLONIDINE, BENADRYL AND MELATONIN LAST NIGHT BEFORE BED, BUT HAS BEEN UNABLE TO SLEEP. PT'S SPEECH IS RELATIVELY CLEAR, WITH SOME WORD SEARCHING. PT ALSO C/O DRY MOUTH. MOUTH SWAB GIVEN. IVF STARTED AT 125 ML/HR. DR. DONG TO SEE PATIENT. PT NPO FOR NOW. PT ORIENTED TO ROOM AND CALL LIGHT. PT NOT SHOWING SIGNS OF IMPULSIVENESS AT THIS TIME. BED ALARM ON FOR SAFETY. DTRs HYPERREFLEXIVE UPON EXAM IN LOWER LEGS.
--- NOTE | 2022-10-07 09:40 | NUR ---
DR. DONG IN ROOM TO SEE PATIENT AT THIS TIME. HR REMAINS IN THE 130s. PT HAS BEEN RESTING IN BED WITHOUT IMPULSIVENESS.
--- NOTE | 2022-10-07 10:00 | NUR ---
CXR COMPLETE. PT NOW ON CLEAR LIQUIDS.
--- NOTE | 2022-10-07 10:13 | NUR ---
CCS CALLED PER DR. DONG'S VERBAL ORDER AND ASKED FOR EVALUATION. MENTAL HEALTH CONTINUOUS IMPROVEMENT LEAD WILL BE UP TO SEE HER SHORTLY. IVF TO BE CHANGED TO LR WITH 40 KCL AT 250 ML/HR X1 BAG. PT GETTING UP TO BSC TO VOID WITH RN HELP. CONTINUE TO MONITOR.
[2022-10-07] MEDS ORDERED: DULOXETINE HCL60 MG PO (10:38)
[2022-10-07] MEDS ORDERED: SUCRALFATE1 GM/10 ML PO (10:39)
--- NOTE | 2022-10-07 10:41 | NUR ---
PATIENT'S MOTHER ARRIVES BACK TO CCU WITH ANOTHER ADULT. PT'S MOTHER BROUGHT ALL OF PATIENT'S MEDICATIONS IN FOR REVIEW AND PHARMACY CALLED TO HAVE THESE LOOKED AT FOR ACCURATE MEDICATION LIST. PT WILL BE TRANSFERRED TO THE MEDICAL FLOOR.
[2022-10-07] MEDS ORDERED: OMEPRAZOLE40 MG PO (11:36)
--- NOTE | 2022-10-07 12:02 | NUR ---
CCS NOW IN ROOM TALKING WITH Harini MARTHA AND HER FAMILY. IVF CONTINUE AT 250 ML/HR. HR IN THE 120s STILL AT THIS TIME. PT'S CLEAR LIQUIDS BROUGHT TO HER WELL.
--- NOTE | 2022-10-07 12:55 | NUR ---
medications recociled with pharmacy records and patient/family interview
--- NOTE | 2022-10-07 14:23 | NUR ---
PATIENT WILL STAY THE NIGHT, TRANSFER TO MED SURG 115 AND D/C HOME TOMORROW LIKELY. HR IN THE 100s NOW, AND PT STATES SHE IS FEELING OKAY. PT DOES STATE SHE FEELS HER LYMPH NODES IN HER THROAT AND NECK ARE SWOLLEN AND SORE. WILL CONTINUE TO MONITOR.
--- NOTE | 2022-10-07 14:36 | NUR ---
REPORT RECEIVED FROM VIVIANA MARTI. AWAITING PTS ARRIVAL TO MED/SURG
--- NOTE | 2022-10-07 14:57 | NUR ---
PT AMBULATED FROM CCU. PT STEADY ON FEET, NO ASSISTANCE NEEDED. BMAT LEVEL 4. PT DENIES NAUSEA. PT CALM AND COOPERATIVE AT THIS TIME. EDUCATION DONE WITH PT REGRADING CALL LIGHT, MENU, AND HOW TO ORDER FOOD. PT PLACES DINNER ORDER. PT REPORTS "SWOLLEN LYMPH NODES" IN NECK. DENEIS NEED FOR PAIN MEDICATION, DENIES SORE THROAT. LUNG SOUNDS CLEAR. HEART TONES REGULAR, MILD TACHYCARDIA AT TIMES WITH HEART RATE 90-110. PT ORIENTED TO ALL. REFLEXES WNL. NO DIAPHORESIS NOTED. PT REPORTS SHE FEELS THAT HER MEDICINE IS "HELPING" AND DENIES ANY COMPLAINTS EXCEPT FOR "MY NECK AND THE POPPING IN MY EARS." PT REPORTS RECENT UPPER RESPIRATORY INFECTION. NO ADDITONAL REQUESTS OR COMPLAINTS. CALL LIGHT WITHIN REACH. BED RAILS UP. MOTHER AT BEDSIDE.
--- NOTE | 2022-10-07 15:06 | NUR ---
REPORT GIVEN TO VIVIANA LAST ON MED/SURG WHO WILL RESUME CARE OF PATIENT. PATIENT ABLE TO AMBULATE OVER TO ROOM 115 WITH HER MOTHER ACCOMPANYING HER. PT STEADY ON FEET AND TOLERATING ACTIVITY WELL. PT'S DIET ADV TO REGULAR FOR THIS EVENING. PT SPEAKING IN CLEAR SENTENCES WITHOUT ANY WORD SEARCHING NOTED. PT VOIDS IN BATHROOM 600 ML CLEAR YELLOW URINE. PT TRANSFERRED AT 1440.
--- NOTE | 2022-10-07 15:44 | NUR ---
MEDICAITON DUE. THIS RN TO ROOM TO CHECK ON PT. PT RESTING IN BED, WORKING ON PHONE. MEDICAITON GIVEN. PT DENIES PAIN AND NASUEA. NO ADDITIONAL REQUESTS OR COMPLAINTS. CALL LIGHT WITHIN REACH. BED RAILS UP.
--- NOTE | 2022-10-07 16:37 | NUR ---
THIS RN TO ROOM TO CHECK ON PT. PT REQUESTS A SNACK BEFORE DINNER. JELLO AND CRACKERS PROVIDED. PT DENIES PAIN AND NAUSEA. PT DENIES ADDITIONAL REQUESTS OR COMPLAINTS. CALL LIGHT WITHIN REACH. BED RAILS UP.
--- NOTE | 2022-10-07 16:40 | NUR ---
PT TRANSFERED FROM CCU THIS SHIFT, HERE FOR POSSIBLE SEROTONIN SYNDROME AND ANXIETY. PT UP IN ROOM INDEPENDANTLY, STEADY ON FEET. PT ADVANED TO REGULAR DIET, WITH GOOD APPITITE AND NO NAUSEA THIS SHIFT. NO DIAPHROESIS OR TEMPERATURE FLUCUTIONS NOTED THIS SHIFT. REFLEXES REMAIN WNL. PT REPORTS 1/10 PAIN IN NECK LYMPHNODES THIS SHIFT, DENIES NEED FOR PAIN MEDICATION. IV FLUIDS CONTINUE. MONITORING WBC LABS PRIOR TO POSSIBLE DISCHRAGE. PT VOIDING QUANTITY SUFFICIENT. PT USES CALL LIGHT AND MAKES NEEDS KNOWN.
--- NOTE | 2022-10-07 17:35 | NUR ---
THIS RN TO ROOM TO CHECK ON PT. DINNER DELIVERED TO PT. PT SITTING ON EDGE OF BED FOR DINNER. PT DENIES PAIN AND NAUSEA. PT REPORTS SHE WAS UP IN ROOM TO VOID AND HAD NO TROUBLE MOVING HER IV PUMP. PT DENIES ADDITIONAL REQUESTS OR COMPLAINTS. CALL LIGHT WITHIN REACH.
--- NOTE | 2022-10-07 18:48 | NUR ---
THIS RN TO ROOM TO CHECK ON PT. PT FINISHED TALKING WITH FAMILY. PT DENIES PAIN AND NASUEA BUT REPORTS ANXIETY, SEE MAR FOR MEDICAITON GIVEN. PTS HEART RATE NOTED TO BE ELEVATED WITH ANXIETY. PT UP TO RESTROOM INDEPENDANTLY, STEADY ON FEET. PT DENIES PAIN AND NAUSEA. WARM BANKET PROVIDED. 7UP AND ICE WATER REFILLED. NO ADDITIONAL REQUESTS OR COMPLAINTS. CALL LIGHT WITHIN REACH. BED RAILS UP.
--- NOTE | 2022-10-07 19:39 | NUR ---
RECEIVED REPORT FROM DAY SHIFT RN. PATIENT IS UP AMBULATING IN [place]. NO NEEDS NOTED.
--- NOTE | 2022-10-07 20:48 | NUR ---
PATIENT BACK IN ROOM RESTING IN BED WATCHING TV. PATIENT DENIES ANY PAIN OR NAUSEA. PATIENTS VITALS TAKEN AND RECORDED. INTAKE AND OUTPUT RECORDED. PATIENTS PM MEDS GIVEN PER ORDER. PATIENTS IV INFUSING PER ORDER. FRESH ICE WATER AND 7-UP PROVIDED. PATIENT PROVIDED WITH FAN. PATIENT IS AAOX4. PATIENT REPORTS BEING "A LITTLE ANXIOUS". PATIENTS SCHEDULED MEDS FOR ANXIETY GIVEN. PATIENT DENIES ANY FURTHER INTERVENTION FOR ANXIETY AT THIS TIME. PATIENT DENIES ANY FURTHER NEEDS. CALL LIGHT IN REACH.
--- NOTE | 2022-10-07 22:00 | NUR ---
PATIENT IS RESTING IN BED WATCHING TV. PATIENT DENIES ANY NEEDS CALL LIGHT IN REACH. IV INFUSING PER ORDER.
--- NOTE | 2022-10-07 22:36 | NUR ---
PATIENT REPORTS 4/10 EAR PAIN, PRN TYLENOL GIVEN PER ORDER. PATIENT IS NOW SL PER ORDER. PATIENT DENIES ANY FURTHER NEEDS. CALL LIGHT IN REACH.
--- NOTE | 2022-10-07 23:38 | NUR ---
PATIENT EXPRESSES CONCERNS ABOUT HER HOME MEDICATIONS. PATIENT STATED "I AM NOT SURE I AM TAKING THEM THE RIGHT WAY". PHARMACY CONSULT PLACED. PATIENT REASSURED THAT WE WILL ASSIST HER IN EDUCATING HER ON PROPER MEDICATION ADMINISTRATION. PATIENT DENIES ANY FURTHER NEEDS. CALL LIGHT IN REACH.
--- NOTE | 2022-10-08 00:01 | NUR ---
PATIENT IS RESTING IN BED WATCHING TV. PATIENT DENIES ANY NEEDS. CALL LIGHT IN REACH.
--- NOTE | 2022-10-08 00:15 | NUR ---
BEDSIDE REPORT RECEIVED FROM VIVIANA BRITTON, THIS RN TO TAKE OVER pt CARE AT THIS TIME, pt AWAKE AND DENIES NEEDS. RECENTLY VOIDED 300MLS URINE. BACK IN BED, CALL LIGHT IN REACH. NO NEEDS OR CONCERNS AT THIS TIME.
--- NOTE | 2022-10-08 02:20 | NUR ---
ASSESSMENT COMPLETE, pt A/OX4. APPEARS RELAXED AT THIS TIME, NO NEED FOR PAIN, NAUSEA, OR ANXIETY MEDICATION AT THIS TIME PER pt. VSS, RR EVEN AND UNLABORED. pt EASILY AWOKE TO VOICE, DENIES ADDITIONAL NEEDS. CALL LIGHT IN REACH, pt INDEPENDENT IN ROOM.
--- NOTE | 2022-10-08 04:51 | NUR ---
rounded on pt, pt resting in bed with eyes closed. on ra, rr even and unlabored. no distress noted. call light in reach.
--- NOTE | 2022-10-08 05:28 | NUR ---
ROUNDED ON pt, VSS AND I&O'S COMPLETE. pt DENIES ADDTIONAL NEEDS OR CONCERNS. CALL LIGHT IN REACH. FRESH WATER PROVIDED.
--- NOTE | 2022-10-08 07:32 | NUR ---
REPORT FROM GEOLOGIST PETROLEUM RN
--- NOTE | 2022-10-08 07:51 | NUR ---
MORNING ASSESSMENT DONE. PATIENT IS RESTING IN BED, DENIES PAIN OR NAUSEA. PATIENT IS LOOKING FORWARD TO DISCUSSING HER HOME MEDICATIONS WITH A PHARMASIST. PATIENT CONTINUES TO ENDORSE EAR DISCOMFORT, SINUS PRESSURE WITH GREEN DISCHARGE. PLAN TO TALK WITH PHYSICIAN REGARDING THIS.
--- NOTE | 2022-10-08 09:09 | NUR ---
PATIENT GIVEN MORNING MEDICATIONS, ALSO TYLENOL FOR 7/10 BILATERAL EAR PAIN.
--- NOTE | 2022-10-08 09:18 | NUR ---
PATIENT SITTING UP IN BED AT THIS TIME. VITALS AND I&O'S CHARTED. CALL LIGHT IN REACH. NO FURTHER NEEDS AT THIS TIME.
--- NOTE | 2022-10-08 09:47 | NUR ---
PATIENT GIVEN 0900 MEDICATIONS. FAMILY AND CASE MANAGEMENT IN ROOM VISITING WITH PATIENT.
[2022-10-08] MEDS ORDERED: AMOXICILLIN-CL1 EACH PO (10:18)
--- NOTE | 2022-10-08 10:34 | NUR ---
LEFT A/C IV DISCONTINUED INTACT. PATIENT HAS ORDERED LUNCH TO BE IN A TO-GO BOX.
--- NOTE | 2022-10-08 10:40 | NUR ---
Spoke with Mariaelena and her mom, Radha. They are well known to me. Per pt and her mom, pt "ramped up" over the weekend. Mom believes this is due to the change of season. She believes pt is [place], has anxiety, and ADHD. Pt is managed through [facility] and speaks with the psychiatrist every 4-6 months. She sees a counselor every 2 weeks. Per pt is she is due to speak with the psychiatrist the end of this month. She states with her last med change, she never really understood how to take her meds. Her couselor at [facility] has attempted to advocate for her. I encouraged pt and her mom to print out pts meds and next visit and have Alfonso Dos Santos go through them one at a time. Mariaelena needs to tell her what her understanding is. Mom and pt are not happy with service from [facility] with Dr. Carter. I encouraged them to contact [facility] and ask if there is another psychiatrist to work with her. Dr Grayson in and spoke with pt and mom. He plans on dc for this pt today. Pt and mom feel safe with dc to home today. Pt cont. to have multiple questions about her medications and we reviewed pharmacy can assist her to understand how her medication are prescribed and how she should take them. They cannot change her meds to how she thinks she should take them. She needs to call Dr. Hamilton for this. Both state understanding.
[2022-10-08] MEDS ORDERED: BUPROPION XL300 MG PO (11:04)
--- NOTE | 2022-10-08 11:39 | NUR ---
PATIENT GIVEN D/C INSTRUCTIONS, VITALS ARE STABLE. PATIENT IS AWAITING LUNCH AND THEN CAN DISCHARGE.
--- NOTE | 2022-10-09 19:00 | EKG ---
[facility] [address] [facility] [place] [address] Signed Sinus tachycardia Septal infarct (cited on or before 21-JAN-2022) Abnormal ECG When compared with ECG of 21-JAN-2022 15:28, No significant change was found Confirmed by Rafl Bejarano MD () on 10/09/2022 7:00:25 PM Electronically Signed By: RALF BEJARANO MD 10/09/22 1900 PATIENT NAME: LEO DEAL RAHUL Electrocardiogram DATE OF : [birth year] PHYSICIAN: RALF BEJARANO MD REPORT #: [id number] REPORT IS CONFIDENTIAL AND NOT TO BE RELEASED WITHOUT AUTHORIZATION
== END 2022-10-08 12:05 | disposition home or self-care (01) ==
LOC: ED 05:43 → CCU 05:46 → MS 14:40
PROVIDERS: ADMIT Internal Medicine; ATTEND Internal Medicine
DX: F41.9 Anxiety disorder, unspecified (principal); F32.A Depression, unspecified; D72.829 Elevated white blood cell count, unspecified; E86.0 Dehydration; E87.6 Hypokalemia; K21.9 Gastro-esophageal reflux disease without esophagitis; Z20.822 Contact with and (suspected) exposure to COVID-19; G47.00 Insomnia, unspecified
CPT/HCPCS: 36415; 71045; 80053; 80175; 81001; 83735; 84443; 85025; 87502; 93005; 93010; 96361; 96374; 96375; 99285-25; A9270; C9803; G0378; J0780; J2060; J3480; J7120; J7121; U0003

== ENCOUNTER 2024-06-13 08:14 | Emergency (ER) | payer OTHER ==
[~2024-06-13] VITALS: Ht 160 cm; Wt 116.9 kg
[~2024-06-13 08:14] MED LIST changes: +AMOXICILLIN-CL1 EACH PO; +BENADRYL25 MG PO; +BUPROPION XL300 MG PO; +CLONIDINE HCL0.3 MG PO; +DULOXETINE HCL60 MG PO; +LAMOTRIGINE25 MG PO; +OMEPRAZOLE40 MG PO; +SUCRALFATE1 GM/10 ML PO; +ZZZQUIL25 MG PO
[2024-06-13] MEDS ORDERED: PEN NEEDLE1 EAC5 MISC (08:26)
[2024-06-13] MEDS ORDERED: VICTOZA 2-0.6 MG/0.1 SUB-Q (08:27)
[2024-06-13 08:39] LABS: BASOPHILS 0.7 % (0-2); EOSINOPHILS 4.7 % (0-6); HEMATOCRIT 41.9 % (35.0-50.0); HEMOGLOBIN 14.2 g/dL (12.0-18.0); LYMPHOCYTES 25.2 % (24-44); MCH 29.3 (27-36); MCHC 33.8 g/dl (30-36); MCV 86.7 fl (81-99); MONOCYTES 8.4 % (0-12); PLATELET COUNT 344 K/uL (140-440); RBC 4.83 M/ul (4.3-5.7)
[2024-06-13] MEDS ORDERED: METOCLOPRAMIDE HCL 10 MG/2 ML SDV IV ONE (08:45)
[2024-06-13] MEDS ORDERED: SODIUM CHLORIDE 0.9% 1,000 ML IV ONE (08:45)
[2024-06-13 08:49] LABS: ALBUMIN/GLOBULIN RATIO 1.03 (1.1-2.4); ANION GAP 16.5 (7-21); BILIRUBIN, TOTAL 0.3 ng/dL (0.2-1.0); BUN/CREATININE RATIO 7.36 (6.0-28.6); CREATININE, SERUM 0.95 mg/dL (0.55-1.02); POTASSIUM 3.5 mmol/L (3.5-5.1); PROTEIN, TOTAL 7.9 g/dL (6.4-8.2)
[2024-06-13] MEDS ORDERED: ONDANSETRON ODT8 MG PO (09:16)
[2024-06-13] MEDS ORDERED: REGLAN10 MG PO (09:16)
[2024-06-13 09:27] VITALS: BP 120/76
== END 2024-06-13 09:27 | disposition home or self-care (01) ==
LOC: ED 08:14
PROVIDERS: Emergency Medicine
DX: K29.00 Acute gastritis without bleeding (principal); Z90.49 Acquired absence of other specified parts of digestive tract; Z88.5 Allergy status to narcotic agent; Z88.8 Allergy status to other drugs, medicaments and biological substances; Z79.85 Long-term (current) use of injectable non-insulin antidiabetic drugs; Z79.899 Other long term (current) drug therapy
CPT/HCPCS: 36415; 80053; 83690; 84703; 85025; 96374; 99284-25; J2765; J7030

== ENCOUNTER 2024-07-17 09:42 | Emergency (ER) | payer OTHER ==
[~2024-07-17] VITALS: Ht 160 cm; Wt 121.6 kg
[~2024-07-17 09:42] MED LIST changes: +PEN NEEDLE1 EAC5 MISC; +REGLAN10 MG PO; +VICTOZA 2-0.6 MG/0.1 SUB-Q
[2024-07-17] MEDS ORDERED: PENICILLIN V P500 MG PO (11:24)
[2024-07-17] MEDS ORDERED: DIFLUCAN200 MG PO (11:24)
[2024-07-17 11:34] VITALS: BP 134/87
== END 2024-07-17 11:35 | disposition home or self-care (01) ==
LOC: ED 09:42
DX: J02.0 Streptococcal pharyngitis (principal); Z88.5 Allergy status to narcotic agent; Z88.8 Allergy status to other drugs, medicaments and biological substances; Z79.899 Other long term (current) drug therapy
CPT/HCPCS: 87651; 99283

== ENCOUNTER 2024-08-19 13:45 | Emergency (ER) | payer OTHER ==
[~2024-08-19] VITALS: Ht 160 cm; Wt 122.7 kg
[~2024-08-19 13:45] MED LIST changes: +DIFLUCAN200 MG PO; +PENICILLIN V P500 MG PO
[2024-08-19] MEDS ORDERED: VRAYLAR1.5 MG PO (14:07)
[2024-08-19] MEDS ORDERED: TRAMADOL HCL50 MG PO (14:08)
[2024-08-19] MEDS ORDERED: HYDROXYZINE HCL50 MG PO (14:08)
[2024-08-19] MEDS ORDERED: BACTRIM 400-801 EACH PO (16:52)
[2024-08-19 16:59] VITALS: BP 129/74
== END 2024-08-19 16:59 | disposition home or self-care (01) ==
LOC: ED 13:45
DX: L05.01 Pilonidal cyst with abscess (principal); Z88.5 Allergy status to narcotic agent; Z88.8 Allergy status to other drugs, medicaments and biological substances; Z79.899 Other long term (current) drug therapy
CPT/HCPCS: 99283